=== PATIENT | male | born 2005 | race Caucasian/White ===

== ENCOUNTER 2024-07-16 11:23 | Emergency (ER) | payer OTHER ==
[~2024-07-16] VITALS: Ht 182.9 cm; Wt 111.4 kg
[2024-07-16] MEDS: PROPARACAINE 0.5% OPHTH SOL 15ML OU ONE (13:48)
[2024-07-16] MEDS: ACETAMINOPHEN 500 MG TAB PO ONE (15:18)
[2024-07-16] MEDS: FLUORESCEIN OPHTH 1MG STRIP OU ONE (15:30)
[2024-07-16 15:45] VITALS: BP 136/81; TEMP 97.2; O2SAT 100
== END 2024-07-16 15:50 | disposition home or self-care (01) ==
LOC: M ED 11:23
DX: H10.213 Acute toxic conjunctivitis, bilateral (principal); X58.XXXA Exposure to other specified factors, initial encounter; Y92.9 Unspecified place or not applicable; Y93.9 Activity, unspecified; Y99.1 Military activity